=== PATIENT | male | born 1985 | race Caucasian/White ===

== ENCOUNTER 2017-04-12 18:39 | Emergency (ER) | payer OTHER ==
[~2017-04-12] VITALS: Ht 177.8 cm; Wt 113.8 kg
[~2017-04-12 18:39] MED LIST: ALBUTEROL17 GM IH; HYDRALAZINE HCL25 MG PO; HYDROMORPHONE HC4 MG PO; KADIAN30 MG PO; NAPROSYN500 MG PO; SKELAXIN800 MG PO; ULTRAM50 MG PO
[2017-04-12] MEDS ORDERED: NAPROSYN500 MG PO (20:22)
[2017-04-12] MEDS ORDERED: ROXICODONE5 MG PO (20:22)
[2017-04-12 20:37] VITALS: BP 120/82
== END 2017-04-12 20:37 | disposition home or self-care (01) ==
LOC: EME 18:39
DX: S46.911A Strain of unspecified muscle, fascia and tendon at shoulder and upper arm level, right arm, initial encounter (principal); X50.3XXA Overexertion from repetitive movements, initial encounter; Y99.0 Civilian activity done for income or pay; F17.200 Nicotine dependence, unspecified, uncomplicated
CPT/HCPCS: 73030; 99281; 99283

== ENCOUNTER 2017-12-16 21:53 | Emergency (ER) | payer OTHER ==
[~2017-12-16] VITALS: Ht 177.8 cm; Wt 115.7 kg
[~2017-12-16 21:53] MED LIST changes: +ROXICODONE5 MG PO
[2017-12-16 21:55] VITALS: BP 131/81
[2017-12-16] MEDS ORDERED: PERCOCET 5/31 TABLET PO (23:37)
[2017-12-16] MEDS ORDERED: MOTRIN600 MG PO (23:37)
== END 2017-12-17 00:13 | disposition home or self-care (01) ==
LOC: EME 21:53
DX: S93.601A Unspecified sprain of right foot, initial encounter (principal); Y93.62 Activity, american flag or touch football; F17.200 Nicotine dependence, unspecified, uncomplicated; Z88.6 Allergy status to analgesic agent; Z88.5 Allergy status to narcotic agent
CPT/HCPCS: 73630; 99281; 99284